=== PATIENT | female | born 1995 | race Caucasian/White ===

== ENCOUNTER 2024-09-24 08:16 | Outpatient (CLI) | payer BC, SELFPAY ==
[2024-09-26 04:01] LABS: HPV Source Cervix; HPV, High Risk by TMA Not Detected
== END 2024-09-24 08:17 | disposition home or self-care (01) ==
PROVIDERS: PCP Family Medicine; Visit Provider Registered Nurse
DX: Z12.4 Encounter for screening for malignant neoplasm of cervix (principal); Z11.51 Encounter for screening for human papillomavirus (HPV)
CPT/HCPCS: 87624; 87625; 88141; 88142